=== PATIENT | female | born 1955 | race Caucasian/White ===

== ENCOUNTER 2021-03-30 08:52 | Day surgery (SDC) | payer MEDICARE, OTHER ==
[~2021-03-30] VITALS: Ht 172.7 cm; Wt 113.5 kg
[~2021-03-30 08:52] MED LIST: BUPIVACAINE/PF 0.25% ONE; EPINEPHRINE 1 MG/ML, 1ML ONE; GENTAMICIN 80 MG/2 ML ONE; HERBAL THYROID PO; KETOROLAC 60 MG/2 ML ONE; ROPIvacaine/PF 0.2%, 20 ML ONE; SODIUM CHLORIDE 0.9% 50 ML ONE; TRANEXAMIC ACID 100 MG/ML, 10ML ONE; VANCOMYCIN 1,000 MG ONE
[2021-03-30 09:29] VITALS: BP 143/83
[2021-03-30] MEDS ORDERED: LACTATED RINGERS 1,000 ML IV SCH (09:30)
[2021-03-30] MEDS ORDERED: CHLORHEXIDINE 15 ML UDC PO ONE (09:30)
[2021-03-30] MEDS ORDERED: MIDAZOLAM 1 MG/ML, 2ML ONE (11:17)
[2021-03-30] MEDS ORDERED: FENTANYL PF 250 MCG/5ML ONE (11:17)
[2021-03-30] MEDS ORDERED: hydrALAzine 20 MG/ML, 1ML IV PRN ×2 (12:00→14:00)
[2021-03-30] MEDS ORDERED: HYDROmorphone 1 MG/ML, 1ML INJ IVPush PRN ×2 (12:00→14:00)
[2021-03-30] MEDS ORDERED: ONDANSETRON 2MG/ML, 2ML IVPush PRN ×2 (12:00→14:00)
[2021-03-30] MEDS ORDERED: LABETALOL 5MG/ML, 20ML IV PRN ×2 (12:00→14:00)
[2021-03-30] MEDS ORDERED: FENTANYL PF 100 MCG/2ML IV PRN ×2 (12:00→14:00)
[2021-03-30] MEDS ORDERED: LORazepam 2 MG/ML, 1ML IVPush PRN ×2 (12:00→14:00)
[2021-03-30] MEDS ORDERED: ACETAMINOPHEN 325 MG TABLET PO PRN ×2 (12:00→14:00)
[2021-03-30] MEDS ORDERED: ALBUTEROL SULFATE 2.5 MG/3 ML NPPB PRN (12:00)
[2021-03-30] MEDS ORDERED: MEPERIDINE/PF 25MG/0.5ML IVPush PRN ×2 (12:00→14:00)
[2021-03-30] MEDS ORDERED: PROMETHAZINE 25 MG/ML, 1ML IVPush PRN ×2 (12:00→14:00)
[2021-03-30] MEDS ORDERED: OXYcodone 5 MG/5 ML ORAL.SOL UDC PO PRN ×2 (12:00→14:00)
[2021-03-30] MEDS ORDERED: HALOPERIDOL 5 MG/ML IV PRN ×2 (12:00→14:00)
[2021-03-30] MEDS ORDERED: ALBUTEROL/IPRATROPIUM 2.5MG/0.5MG, 3 ML NPPB PRN (12:00)
[2021-03-30] MEDS ORDERED: SCOPOLAMINE 1MG PATCH TD ONE (12:31)
[2021-03-30] MEDS ORDERED: DEXAMETHASONE 4 MG/ML, 1ML ONE (12:55)
[2021-03-30] MEDS ORDERED: SUCCINYLCHOLINE 20 MG/ML, 10ML ONE (12:55)
[2021-03-30] MEDS ORDERED: SUGAMMADEX 200 MG/2 ML IVPush ONE (12:55)
[2021-03-30] MEDS ORDERED: PROPOFOL 10 MG/ML, 20ML ONE (12:55)
[2021-03-30] MEDS ORDERED: KETOROLAC 30 MG/1 ML ONE (12:55)
[2021-03-30] MEDS ORDERED: ONDANSETRON 2MG/ML, 2ML ONE (12:55)
[2021-03-30] MEDS ORDERED: CEFAZOLIN 1,000 MG ONE (12:55)
[2021-03-30] MEDS ORDERED: ROCURONIUM 10 MG/ML,10ML ONE (12:55)
[2021-03-30] MEDS ORDERED: SCOPOLAMINE 1MG PATCH TD SCH (13:00)
[2021-03-30] MEDS ORDERED: FLUORESCEIN SODIUM 500 MG/5 ML ONE (13:58)
[2021-03-30] MEDS ORDERED: EPHEDRINE 50 MG/ML, 1ML IM PRN (14:00)
[2021-03-30] MEDS ORDERED: FENTANYL PF 100 MCG/2ML ONE (14:04)
[2021-03-30] MEDS ORDERED: PROMETHAZINE 25 MG/ML, 1ML ONE (15:08)
== END 2021-03-30 18:25 | disposition home or self-care (01) ==
LOC: OUT 08:52
PROVIDERS: ATTEND Obstetrics & Gynecology Female Pelvic Medicine and Reconstructive Surgery
DX: N81.2 Incomplete uterovaginal prolapse (principal); N95.0 Postmenopausal bleeding; N80.0 Endometriosis of uterus; N72 Inflammatory disease of cervix uteri; N88.8 Other specified noninflammatory disorders of cervix uteri; N83.312 Acquired atrophy of left ovary; N83.311 Acquired atrophy of right ovary; N83.8 Other noninflammatory disorders of ovary, fallopian tube and broad ligament; N39.46 Mixed incontinence; Z20.822 Contact with and (suspected) exposure to COVID-19; Z79.899 Other long term (current) drug therapy; Z91.048 Other nonmedicinal substance allergy status; Z98.51 Tubal ligation status; Z98.890 Other specified postprocedural states
CPT/HCPCS: 57265; 57282; 57288; 58552; 88307; 93005; C1771; J0171; J0330; J0690; J1100; J1580; J1885; J2250; J2405; J2550; J2704; J2795; J3010; J3370; J7120; U0003; U0005